=== PATIENT | male | born 1960 | race Caucasian/White ===

== ENCOUNTER 2024-05-16 11:34 | Observation (INO) ==
--- NOTE | 2024-05-16 11:52 | Emergency Department Note ---
HPI - Chest Pain General Chief Complaint: Chest Pain Stated Complaint: Weakness Time Seen by Provider: 05/16/24 11:35 Source: patient and family Mode of arrival: wheelchair Limitations: physical limitation History of Present Illness Pertinent past history: Reports coronary artery disease, prior NE and other (brain bleed) Onset (ago): day(s) (1) Timing of current episode: Reports episodic, increasing and still present Prior episodes: Yes Onset: Reports during rest and awoke with symptoms Pain location: Reports substernal Pain radiation: Reports none Severity: moderate Quality: Reports aching and heaviness Relieving factors: Reports nothing Exacerbating factors: Reports exertion Context: Reports recent illness (brain bleed) Associated symptoms: Reports nausea and other (headache) Treatment prior to arrival: Reports none Risk Factors Coronary artery disease risk factors: Reports smoking history, hyperlipidemia and hypertension Thoracic aortic dissection risk factors: Reports none Related Data Home Medications Medication Instructions Recorded Confirmed hydralazine 50 mg tablet 50 mg PO BEDTIME 05/16/24 05/16/24 hydrocodone 7.5 mg-acetaminophen 1 tab PO Q6H PRN pain 05/16/24 05/16/24 325 mg tablet levetiracetam 500 mg tablet 500 mg PO Q12H 05/16/24 05/16/24 lisinopril 40 mg tablet 40 mg PO DAILY 05/16/24 05/16/24 nifedipine 60 mg tablet,extended 60 mg PO DAILY 05/16/24 05/16/24 release 24 hr Allergies Allergy/AdvReac Type Severity Reaction Status Date / Time No Known Drug Allergies Allergy Verified 05/16/24 12:02 Review of Systems Status of ROS 10 or more systems reviewed and unremark able except as noted in history and below Constitutional Reports: fatigue; Denies: fever, chills, change in weight, malaise, night sweats or change in sleep pattern Eyes Denies: change in vision, blurry vision, blind spots, light sensitivity, eye discomfort, eye discharge, dry eyes, increased production of tears, floaters, seeing flashes or decreased night vision Ears, nose, mouth, and throat Denies: throat pain, neck pain, throat swelling, difficulty swallowing, hoarseness, mouth pain, swelling of lips/tongue, dry mouth, bad breath, ear pain, ear discharge, change in hearing, tinnitus, vertigo, nasal discharge, nasal congestion, nose bleeds or post nasal drip Cardiovascular Reports: chest pain; Denies: palpitations, edema, swelling of feet/ankles, lightheadedness, shortness of breath with exertion, shortness of breath when lying down, leg pain with exertion or bluish discoloration of hands/feet Respiratory Denies: shortness of breath, cough, wheezing, stridor, pain on inspiration, change in phlegm color, coughing up blood or chest congestion Gastrointestinal Reports: nausea; Denies: abdominal pain, vomiting, coffee grounds in vomit, heartburn, diarrhea, constipation, bloating, belching, excessive passing of gas, difficulty swallowing, feeling full early, change in bowel habits, painful bowel movements, rectal pain, rectal swelling, rectal itching, change in stool character, blood in stool, mucus in stool, white/light colored stool or fatty stool Genitourinary Denies: painful urination, urinary frequency, urinary urgency, blood in urine, genital pain, genital lesion, penile discharge, testicular pain, testicular mass, scrotal swelling, difficulty urinating, nighttime urination, change in urine stream, decreased urine ouput, difficulty starting urination, urinary hesitancy, urinary dribbling, difficulty with ejactulations, painful ejaculations, blood in semen, change in libido or difficulty impregnating Musculoskeletal Denies: back pain, neck pain, extremity pain, extremity swelling, joint pain, limited range of motion, joint swelling, muscle cramps, muscle weakness or loss of height Integumentary/Breast Denies: rash, itching, redness, skin pain, skin tende rness, skin swelling, sores, new lesion, changing lesion, non-healing lesion, changes in skin color, jaundice, stretch lin, acne, nail changes, change in hair, breast pain, breast swelling, nipple discharge, breast mass, breast skin changes or change in breast shape Neurological Reports: headache, weakness in extremities and difficulty communicating thoughts; Denies: numbness in extremities, lack of coordination, dizziness, vertigo, confusion, behavioral changes, slurred speech, seizure-like activity or involuntary movements Psychiatric Reports: anxiety; Denies: mood swings, panic attacks, change in sleep pattern, hopelessness, loss of interest, irritability, paranoia, memory loss, difficulty concentrating, visual hallucinations, auditory hallucinations, tactile hallucinations, suicidal ideation or homicidal ideation Endocrine Reports: fatigue; Denies: excessive urination, excessive thirst, cold intolerance, excessive sweating, flushing, heat intolerance, deepening of the voice, change in body appearance or change in libido Hematologic/Lymphatic Denies: easy bruising, easy bleeding or enlarged lymph nodes Allergic/Immunologic Reports: wheezing; Denies: hives, throat swelling, tongue swelling, facial swelling, itchy eyes, seasonal allergies or food intolerance Exam Constitutional: normal general appearance, distress noted (moderate), average body habitus, limitations noted (patient has limited communication post recent brain bleed) (physical limitations) and alert Vital Signs - 24 hr 05/16/24 11:34 05/16/24 11:34 05/16/24 12:00 Temperature 98 F Pulse Rate 107 H 99 H Respiratory Rate 20 20 Blood Pressure 124/86 134/83 Pulse Oximetry 99 99 99 Oxygen Delivery [facility] Room Air Room Air Room Air 05/16/24 12:30 05/16/24 13:00 05/16/24 13:30 Temperature Pulse Rate 97 H 95 H 86 Respiratory Rate 20 20 20 Blood Pressure 141/70 121/81 107/68 Pulse Oximetry 99 99 99 Oxygen Delivery [facility] Room Air Room Air Room Air 05/16/24 14:00 05/16/24 14:30 05/16/24 15:00 Temperature Pulse Rate 83 88 83 Respiratory Rate 20 20 20 Blood Pressure 133/76 104/50 112/61 Pulse Oximetry 99 99 99 Oxygen Delivery [facility] Room Air Room Air Room Air 05/16/24 15:30 05/16/24 16:00 05/16/24 16:30 Temperature Pulse Rate 81 85 89 Respiratory Rate 20 20 20 Blood Pressure 105/58 110/67 121/74 Pulse Oximetry 99 99 99 Oxygen Delivery [facility] Room Air Room Air Room Air 05/16/24 17:00 Temperature Pulse Rate 89 Respiratory Rate 20 Blood Pressure 115/76 Pulse Oximetry 99 Oxygen Delivery [facility] Room Air HENMT: normocephalic, head/scalp atraumatic, hearing grossly abnormal (hard of hearing), external ears normal, EACs normal, nasal mucous membranes normal, external nose normal, oral mucous membranes normal and oropharynx normal Eyes: PERRL, EOMs intact bilaterally, conjunctivae normal, no scleral icterus, no papilledema, normal visual bryant by confrontation, alignment normal, periorbital findings normal and no nystagmus Neck/C-Spine: visual inspection normal, trachea midline, cervical spine nontender, cervical full ROM noted, supple, no meningeal signs and thyroid normal Lymph: no lymphadenopathy noted and no lymphedema noted Chest: inspection of chest normal, palpation of chest normal, inspection of breast(s) abnormal and palpation of breast(s) abnormal Respiratory: breath sounds equal bilaterally, normal respiratory effort, clear to auscultation bilaterally, no wheezes, no rales, no retractions and no use of accessory muscles Cardiovascular: normal heart rate noted, regular rhythm noted, no gallop, no rub, no murmur, no JVD, no clicks, peripheral pulses 2+ throughout and no additional abnormal heart sounds Gastrointestinal: abdomen normal to inspection, abdomen soft to palpation, nontender to palpation, nontender to percussion, nondistended, normoactive bowel sounds, hepatosplenomegaly noted (hepatomegaly), no masses, no pulsatile mass, no ascites and normal rectal exam (deferred) Genitourinary: no CVA tenderness, bladder normal to palpation, penis abnormal (deferred), uncircumcised, testes abnormal, meatus abnormal (deferred), scrotum abnormal (deferred) and inguinal lymphadenopathy noted Back/Pelvis: spine normal to inspection, no thoracic spine tenderness, no lumbar spine tenderness, thoracic spine ROM normal, lumbar spine ROM normal and no paraspinal muscle tenderness noted Extremities: normal to inspection, normal to palpation, no tenderness, full ROM, no joint enlargement and no deformity Neurology: blower mechanic II-XII intact, no movement abnormality noted, no focal motor deficit noted, no sensory deficits noted, gait normal, coordination normal, no pronator drift noted, no fasciculations noted and GCS normal Patient cannot verbally communicate but has to think about what he wants to say, patient reports headache, patient has no other neurological deficits noted other than generalized weakness. Psychiatry: Mental Status Exam documented within this Exam's Psych section mental status grossly normal, oriented x3 (Patient is oriented to his normal state post brain bleed), thought process normal, cooperative, affect normal and psychomotor activity normal Feel stressed/tense/nervous/anxious/difficulty sleeping: not at all Life stressor details: n/a Skin: skin color normal, no rash, no lesions, no ecchymosis noted, no wounds, no lacerations, skin turgor normal, no jaundice, no petechiae, no mottling, nails normal and no alopecia Course Course Hospital Course: 63-year-old male who presented to ER with complaint of chest pain x 1 day with mild nausea and reported headache has been evaluated by physical exam, CBC, CMP, urinalysis, EKG, troponin, plain film chest x-ray, CT of the brain, repeat troponin with results as noted in charting. Patient has been found to have a acute on chronic brain bleed with mild midline shift, patient's initial troponin was within normal range but was noted to be mildly elevated and was repeated at the 4-hour jone with a noted substantial gain to 21,000+. Discussed patient's condition with family and a DNR was signed at that time after patient's son gave verbal medical power of attorney law clerk to his cousin that is a nurse practitioner Parrish Gutierrez. DNR was signed by Parrish Gutierrez as witnessed by nurse practitioner Bon. [facility] and comfort measures with disposition to hospice tomorrow as a tentative plan. Patient had been released to [facility] following a brain bleed according to family approximately 1 week ago. Vital Signs Vital signs: Vital Signs Temperature 98 F 05/16/24 11:34 Pulse Rate 107 H 05/16/24 11:34 Respiratory Rate 20 05/16/24 11:34 Blood Pressure 124/86 05/16/24 11:34 Pulse Oximetry 99 05/16/24 11:34 Oxygen Delivery Method Room Air 05/16/24 11:34 Temperature 98 F 05/16/24 11:34 Pulse Rate 89 05/16/24 17:00 Respiratory Rate 20 05/16/24 17:00 Blood Pressure 115/76 05/16/24 17:00 Pulse Oximetry 99 05/16/24 17:00 Oxygen Delivery Method Room Air 05/16/24 17:00 MDM - Chest Pain MDM Narrative Medical decision making narrative: Medical Decision Making this patient involved physical exam, CBC, CMP, urinalysis, serial troponins, EKG, plain film chest x-ray, and CT of the brain. Differential Diagnosis Differential diagnosis: Likely unstable angina pectoris, st elevation myocardial infarction, chest pain and other (Brain bleed, occlusive stroke, NSTEMI) Medical Records Data Attestation: I reviewed the patient's medical records. Lab Data Attestation: I reviewed the patient's lab results. Labs: Lab Results 05/16/24 05/16/24 Range/Units 11:45 16:00 WBC 12.2 H (3.7-9.6) K/uL RBC 3.8 L (4.40-5.80) M/uL Hgb 12.6 L (14.0-17.4) gm/dL Hct 37.9 L (41.3-50.1) % MCV 99.8 H (81.9-96.5) fl MCH 33.3 (27.6-33.7) pg MCHC 33.3 (33.0-35.7) g/dl RDW 14.9 H (11.0-14.8) % Plt Count 467 H (142-355) K/uL MPV 8.6 (6.0-10.4) fl Gran % 85.0 H (49.1-73.1) % Lymph % (Auto) 8.9 L (17.6-39.05) % [place] % (Auto) 5.2 (4.5-10.7) % Eos % (Auto) 0.2 (0.0-4.0) % Baso % (Auto) 0.7 (0.0-1.3) Lymph # (Auto) 1.1 (0.8-2.9) [place] # (Auto) 0.6 (0.2-0.8) Eos # (Auto) 0.0 (0.0-0.3) Baso # (Auto) 0.1 (0.0-0.1) Absolute Gran (auto) 10.3 H (2.0-6.2) Sodium 137 (136-145) mmol/L Potassium 4.7 (3.6-5.2) mmol/L Chloride 102.0 (98-107) mmol/L Carbon Dioxide 22 (21-32) mmol/L Anion Gap 13.0 (4-14) mEq/L BUN 39 H (7-18) mg/dL Creatinine 1.2 (0.6-1.3) mg/dL Estimated GFR 68.0 (>59.9) Glucose 214 H (70-110) mg/dL Calcium 10.0 (8.5-10.1) mg/dL Magnesium 1.7 L (1.8-2.4) mg/dL Total Bilirubin 0.35 (0.0-1.0) mg/dL AST 30 (15-37) U/L ALT 23 L (30-65) U/L Alkaline Phosphatase 134 (50-136) U/L Troponin I High Sens 45.40 67790.90 H* (4.0-60.4) ng/L Total Protein 8.2 (6.4-8.2) g/dL Albumin 3.4 (3.4-5.0) g/dL Imaging Data Imaging ordered: Chest x-ray and CT scan - head Attestation: I have reviewed the pertinent imaging results. Radiologist's impression: EXAM: CT HEAD/BRAIN WO CON HISTORY: headache with hx of brain bleedheadache with hx of brain bleed; COMPARISON: Numerous priors TECHNIQUE: Multiple axial images of the head were obtained from the skull base to the vertex without administration of IV contrast. Sagittal and coronal reformatted images were performed. Automated exposure control (AEC) was utilized to adjust the MA and/or kV. FINDINGS: CT findings of an acute on chronic [place] hemispheric right frontotemporal extra- axial subdural hemorrhage which measures 10 mm in greatest diameter with slight [id number] midline shift of roughly 6 mm without evidence for hailey herniation syndrome yet seen. Close interval head CT follow-up in 1 hour is recommended to exclude interval enlargement. Neurosurgical consultation will also be required. There is no evidence for acute hydrocephalus yet seen, either. There is no secondary evidence for cerebral edema to suggest impending cerebral ischemia on this examination, either. Otherwise, there is moderate sulcal and cisternal prominence as well as atherosclerotic change in the proximal intracranial carotid and vertebral arteries, which is not out of proportion to the patient's stated age. There is diffuse CT density alteration seen in the periventricular white matter of the high and mid-convexity, which is likely in the setting of small vessel disease and not out of proportion to the patient's stated age. There is no pathologic ventricular dilatation or CT imaging evidence for hydrocephalus or herniation syndrome. No midline shift is evident. No other acute intraparenchymal hemorrhage or mass can be identified. If there remains a strong concern for any intra-cranial neoplasm, then follow-up with CT or MR imaging of the brain would be more sensitive to exclude any intra-cranial mass lesion. No extra-axial fluid collections are seen. No alteration in the attenuation of the brain parenchyma can be identified to suggest acute or subacute ischemic change. Also, if clinical symptoms are concerning for an acute CVA, then follow-up MRI with DWI sequencing is recommended. The extracranial structures are unremarkable. The paranasal sinuses and mastoid air cells are relatively clear. IMPRESSION: CT findings of an acute on chronic [place] hemispheric right-sided frontotemporal, extra-axial and subdural, hemorrhage which measures 10 mm in greatest diameter with slight [id number] midline shift of roughly 6 mm without evidence for hailey transtentorial herniation syndrome yet seen. No uncal herniation is yet observed, either. Close interval head CT follow-up in 1 hour is recommended to exclude interval enlargement. Neurosurgical consultation will also be required. There is no evidence for acute hydrocephalus yet seen, either. There is no secondary evidence for cerebral edema to suggest impending cerebral ischemia on this examination, either. No other acute intracranial process is identified on this noncontrast head CT examination. THIS IS AN ELECTRONICALLY VERIFIED FINAL REPORT 05/16/2024 3:08 PM - Electronically signed by Bo Weber MD EXAM: XR CHEST 1V HISTORY: dyspnea; chest pain this morning; cbn COMPARISON: March 23, 2024 FINDINGS: The trachea is midline. The cardiac silhouette is unremarkable. The lungs are clear without focal infiltrate or effusion. The bony thorax is unremarkable. IMPRESSION: No acute cardiopulmonary disease. THIS IS AN ELECTRONICALLY VERIFIED FINAL REPORT 05/16/2024 12:37 PM - Electronically signed by Bob Alberts MD ECG Data Attestation: I have reviewed the pertinent ECG results. Interpretation: Sinus tachycardia rate 104 Anterior infarct, acute RR 576 IL 117 P axis 19 QRS 57 T52 Discharge Plan Discharge Patient Disposition: Admitted As Observation Condition: Other Chief Complaint: Chest Pain Clinical Impression: Acute non-ST elevation myocardial infarction (NSTEMI), Brain bleed, Type 2 diabetes mellitus with hyperglycemia, Chest pain, Dehydration Prescriptions: No Action levetiracetam 500 mg tablet 500 mg PO Q12H Patient Comments: TAKE 1 TABLET (500 MG TOTAL) BY MOUTH IN THE MORNING AND BEFORE BEDTIME nifedipine 60 mg tablet extended release 24hr 60 mg PO DAILY Patient Comments: TAKE 1 TABLET BY MOUTH EVERY DAY hydralazine 50 mg tablet 50 mg PO BEDTIME Patient Comments: TAKE 1 TABLET BY MOUTH EVERYDAY AT BEDTIME lisinopril 40 mg tablet 40 mg PO DAILY Patient Comments: TAKE 1 TABLET BY MOUTH EVERY DAY hydrocodone-acetaminophen 7.5-325 mg tablet 1 tab PO Q6H PRN (Reason: pain) Patient Comments: TAKE 1 TABLET BY MOUTH EVERY 6 HOURS NEEDED FOR PAIN FOR UP TO 7 DAYS. Print Language: Japanese Referrals: Fadi Alvarez MD [Primary Care Provider] - Time of Disposition: 19:30 [facility] Medical History Pancreatitis Bilateral hearing loss Essential (primary) hypertension Type 2 diabetes mellitus with hyperglycemia Biliary colic Cholelithiases History of TIAs Hearing deficit ETOH abuse Diabetes HTN (hypertension) Social History Smoking status: current every day smoker Within the past year, how often did you have a drink containing alcohol: 4 or more times a week Within the past year, how many standard drinks containing alcohol did you have on a typical day: 7 to 9 Within the past year, how often did you have six or more drinks on one occasion: daily or almost daily Total score: 10 Score interpretation: A score of 4 or more indicates drinking is likely to affect patient's safety. Non-prescribed substance use: denies use Problems where you live: no known problems Highest level of school completed/degree received: high school Little interest or pleasure in doing things: not at all Feeling down, depressed, or hopeless: not at all Feel stressed/tense/nervous/anxious/difficulty sleeping: not at all Life stressor details: n/a Due to disability, difficulty making decisions: No Gender Identity: male
[2024-05-16 12:05] LABS: Basophils #(Absolute) Auto 0.1 (0.0-0.1); Basophils%(Percent) Auto 0.7 (0.0-1.3); Granulocytes#(Absolute)- Auto 10.3 (2.0-6.2); Monocytes #(Absolute)- Auto 0.6 (0.2-0.8); Monocytes %(Percent)- Auto 5.2 % (4.5-10.7)
[2024-05-16 12:06] LABS: Eosinophils%(Percent) Auto 0.2 % (0.0-4.0); Hematocrit 37.9 % (41.3-50.1); Mean Corpuscular Volume 99.8 fl (81.9-96.5); Platelet Count 467 K/uL (142-355); White Blood Count 12.2 K/uL (3.7-9.6)
[2024-05-16] MEDS: ONDANSETRON HCL/PF 4 MG/2 ML VIAL IVP ONE ×2 (12:07→18:27)
[2024-05-16] MEDS: MORPHINE SULFATE 4 MG/ML CARTRIDGE IVP ONE (12:07)
[2024-05-16 12:11] LABS: Potassium 4.7 mmol/L (3.6-5.2)
[2024-05-16] MEDS ORDERED: 0.9 % SODIUM CHLORIDE 1000 ML 1,000 ML IV ONE (13:12)
[2024-05-16] MEDS: 0.9 % SODIUM CHLORIDE 1000 ML 1,000 ML IV ONE (13:15)
[2024-05-16] MEDS: MEPERIDINE HCL/PF 25 MG/ML SYRINGE IVP ONE (18:27)
[2024-05-16] MEDS ORDERED: PROMETHAZINE HCL 25 MG in 0.9 % SODIUM CHLORIDE 50 ML IV PRN (19:43)
[2024-05-16] MEDS ORDERED: ONDANSETRON HCL/PF 4 MG/2 ML VIAL INJ PRN (19:43)
[2024-05-16] MEDS: MORPHINE SULFATE 4 MG/ML CARTRIDGE IV PRN (21:13)
[2024-05-17] MEDS: lisinopriL 20 MG TABLET PO SCH (10:14)
[2024-05-17] MEDS: levETIRAcetam 500 MG TABLET PO SCH (10:14)
[2024-05-17] MEDS: NIFEdipine 30 MG TAB.ER.24 PO SCH (10:14)
[2024-05-17] MEDS ORDERED: PROMETHAZINE HCL 25 MG in 0.9 % SODIUM CHLORIDE 50 ML IV PRN (11:00)
[2024-05-17] MEDS: PANTOPRAZOLE SODIUM 40 MG VIAL IVP SCH (12:43)
[2024-05-17] MEDS: ACETAMINOPHEN 1000 MG/100 ML 1,000 MG/100 ML IV.SOLN IV SCH (12:44)
--- NOTE | 2024-05-17 14:31 | History & Physical Report ---
H&P: HPI History of Present Illness Chief complaint: NSTEMI,BRAIN BLEED,DEHYDRATION,CARE AND COMFORT,EN Narrative: 63-year-old male who presented to ER with complaint of chest pain x 1 day with mild nausea and reported headache has been evaluated by physical exam, CBC, CMP, urinalysis, EKG, troponin, plain film chest x-ray, CT of the brain, repeat troponin with results as noted in charting. Patient has been found to have a acute on chronic brain bleed with mild midline shift, patient's initial troponin was within normal range but was noted to be mildly elevated and was repeated at the 4-hour jone with a noted substantial gain to 21,000+. Discussed patient's condition with family and a DNR was signed at that time after patient's son gave verbal medical power of licensed esthetician to his cousin that is a nurse practitioner Parrish Gutierrez. DNR was signed by Parrish Gutierrez as witnessed by nurse practitioner Bon. Patient will be admitted to the [facility] floor for care and comfort measures with disposition to hospice tomorrow as a tentative plan. Patient had been released to [facility] following a brain bleed according to family approximately 1 week ago. Review of Systems Status of ROS 10 or more systems reviewed and unremark able except as noted in history and below Constitutional Reports: fatigue; Denies: fever, chills, change in weight, malaise, night sweats or change in sleep pattern Eyes Denies: change in vision, blurry vision, blind spots, light sensitivity, eye discomfort, eye discharge, dry eyes, increased production of tears, floaters, seeing flashes or decreased night vision Ears, nose, mouth, and throat Denies: throat pain, neck pain, throat swelling, difficulty swallowing, hoarseness, mouth pain, swelling of lips/tongue, dry mouth, bad breath, ear pain, ear discharge, change in hearing, tinnitus, vertigo, nasal discharge, nasal congestion, nose bleeds or post nasal drip Cardiovascular Reports: chest pain; Denies: palpitations, edema, swelling of feet/ankles, lightheadedness, shortness of breath with exertion, shortness of breath when lying down, leg pain with exertion or bluish discoloration of hands/feet Respiratory Reports: wheezing; Denies: shortness of breath, cough, stridor, pain on inspiration, change in phlegm color, coughing up blood or chest congestion Gastrointestinal Reports: nausea; Denies: abdominal pain, vomiting, coffee grounds in vomit, heartburn, diarrhea, constipation, bloating, belching, excessi ve passing of gas, difficulty swallowing, feeling full early, change in bowel habits, painful bowel movements, rectal pain, rectal swelling, rectal itching, change in stool character, blood in stool, mucus in stool, white/light colored stool or fatty stool Genitourinary Denies: painful urination, urinary frequency, urinary urgency, blood in urine, genital pain, genital lesion, penile discharge, testicular pain, testicular mass, scrotal swelling, difficulty urinating, nighttime urination, change in urine stream, decreased urine ouput, difficulty starting urination, urinary hesitancy, urinary dribbling, difficulty with ejactulations, painful ejaculations, blood in semen, change in libido or difficulty impregnating Musculoskeletal Denies: back pain, neck pain, extremity pain, extremity swelling, joint pain, limited range of motion, joint swelling, muscle cramps, muscle weakness or loss of height Integumentary/Breast Denies: rash, itching, redness, skin pain, skin tenderness, skin swelling, sores, new lesion, changing lesion, non-healing lesion, changes in skin color, jaundice, stretch lin, acne, nail changes, change in hair, breast pain, breast swelling, nipple discharge, breast mass, breast skin changes or change in breast shape Neurological Reports: headache, weakness in extremities and difficulty communicating thoughts; Denies: numbness in extremities, lack of coordination, dizziness, vertigo, confusion, behavioral changes, slurred speech, seizure-like activity or involuntary movements Psychiatric Reports: anxiety; Denies: mood swings, panic attacks, change in sleep pattern, hopelessness, loss of interest, irritability, paranoia, memory loss, difficulty concentrating, visual hallucinations, auditory hallucinations, tactile hallucinations, suicidal ideation or homicidal ideation Endocrine Reports: fatigue; Denies: excessive urination, excessive thirst, cold intolerance, excessive sweating, flushing, heat intolerance, deepening of the voice, change in body appearance or change in libido Hematologic/Lymphatic Denies: easy bruising, easy bleeding or enlarged lymph nodes Allergic/Immunologic Reports: wheezing; Denies: hives, throat swelling, tongue swelling, facial swelling, itchy eyes, seasonal allergies or food intolerance PFSH PFSH Medical History (Updated 05/18/24 @ 11:21 by Mabel Cleaning DO) History of TIAs Pancreatitis Bilateral hearing loss Essential (primary) hypertension Type 2 diabetes mellitus with hyperglycemia Biliary colic Cholelithiases Hearing deficit ETOH abuse Diabetes HTN (hypertension) Social History Smoking status: current every day smoker Within the past year, how often did you have a drink containing alcohol: 4 or more times a week Within the past year, how many standard drinks containing alcohol did you have on a typical day: 7 to 9 Within the past year, how often did you have six or more drinks on one occasion: daily or almost daily Total score: 10 Score interpretation: A score of 4 or more indicates drinking is likely to affect patient's safety. Non-prescribed substance use: denies use Problems where you live: no known problems Highest level of school completed/degree received: decline to answer Little interest or pleasure in doing things: not at all Feeling down, depressed, or hopeless: not at all Feel stressed/tense/nervous/anxious/difficulty sleeping: not at all Life stressor details: n/a Due to disability, difficulty making decisions: No Gender Identity: male Meds Home Medications and Allergies Home Medications Medication Instructions Recorded Confirmed Type hydralazine 50 mg tablet 50 mg PO BEDTIME 05/16/24 05/16/24 History hydrocodone 7.5 mg-acetaminophen 1 tab PO Q6H PRN pain 05/16/24 05/16/24 History 325 mg tablet levetiracetam 500 mg tablet 500 mg PO Q12H 05/16/24 05/16/24 History lisinopril 40 mg tablet 40 mg PO DAILY 05/16/24 05/16/24 History nifedipine 60 mg tablet,extended 60 mg PO DAILY 05/16/24 05/16/24 History release 24 hr Allergies Allergy/AdvReac Type Severity Reaction Status Date / Time No Known Drug Allergies Allergy Verified 05/16/24 12:02 Exam Exam: Patient was in low trevino's position resting upon entering room for exam. Patient is receiving end of life care and comfort measures. Constitutional: normal general appearance, distress noted (moderate), average body habitus, limitations noted (patient has limited communication post recent brain bleed) (physical limitations) and alert Vital Signs - 24 hr 05/16/24 14:30 05/16/24 15:00 05/16/24 15:30 Temperature Pulse Rate 88 83 81 Pulse Rate [Bilate ral] Respiratory Rate 20 20 20 Blood Pressure 104/50 112/61 105/58 Blood Pressure [Le ft Arm] Pulse Oximetry 99 99 [facility] 05/16/24 16:00 05/16/24 16:30 05/16/24 17:00 Temperature Pulse Rate 85 89 89 Pulse Rate [Bilate ral] Respiratory Rate 20 20 20 Blood Pressure 110/67 121/74 115/76 Blood Pressure [Le ft Arm] Pulse Oximetry 99 99 99 Oxygen Delivery [facility] Room Air Room Air Room Air 05/16/24 18:00 05/16/24 19:00 05/16/24 20:00 Temperature Pulse Rate 86 88 Pulse Rate [Bilate ral] Respiratory Rate 20 20 20 Blood Pressure 111/71 118/77 107/57 Blood Pressure [Le ft Arm] Pulse Oximetry 99 99 99 Oxygen Delivery [facility] Room Air Room Air Room Air 05/16/24 21:00 05/16/24 21:06 05/16/24 23:49 Temperature 98.3 F Pulse Rate 88 Pulse Rate [Bilate ral] 87 Respiratory Rate 20 20 18 Blood Pressure 124/70 124/70 Blood Pressure [Le ft Arm] 119/70 Pulse Oximetry 99 99 97 Oxygen Delivery [facility] Room Air Room Air 05/17/24 03:30 05/17/24 07:52 05/17/24 12:00 Temperature 98.1 F 98.1 F 97.7 F Pulse Rate Pulse Rate [Bilate ral] 88 86 76 Respiratory Rate 19 19 18 Blood Pressure Blood Pressure [Le ft Arm] 115/71 129/75 112/67 Pulse Oximetry 97 99 98 [facility] Air Room Air HENMT: normocephalic, head/scalp atraumatic, hearing grossly abnormal (hard of hearing), external ears normal, EACs normal, nasal mucous membranes normal, external nose normal, oral mucous membranes normal and oropharynx normal Eyes: PERRL, EOMs intact bilaterally, conjunctivae normal, no scleral icterus, no papilledema, normal visual bryant by confrontation, alignment normal, periorbital findings normal and no nystagmus Neck/C-Spine: visual inspection normal, trachea midline, cervical spine nontender, cervical full ROM noted, supple, no meningeal signs and thyroid normal Lymph: no lymphadenopathy noted and no lymphedema noted Chest: inspection of chest normal and palpation of chest normal Respiratory: breath sounds equal bilaterally, normal respiratory effort, clear to auscultation bilaterally, no wheezes, no rales, no retractions and no use of accessory muscles Cardiovascular: normal heart rate noted, regular rhythm noted, no gallop, no rub, no murmur, no JVD, no clicks, peripheral pulses 2+ throughout and no additional abnormal heart sounds Gastrointestinal: abdomen normal to inspection, abdomen soft to palpation, nontender to palpation, nontender to percussion, nondistended and normoactive bowel sounds Genitourinary: no CVA tenderness and bladder normal to palpation Back/Pelvis: spine normal to inspection, no thoracic spine tenderness, no lumbar spine tenderness, thoracic spine ROM normal, lumbar spine ROM normal and no paraspinal muscle tenderness noted Extremities: normal to inspection, normal to palpation, no tenderness, full ROM, no joint enlargement and no deformity Neurology: clay puddler II-XII intact, no movement abnormality noted, no focal motor deficit noted, no sensory deficits noted, gait normal, coordination normal, no pronator drift noted, no fasciculations noted and GCS normal Patient cannot verbally communicate but has to think about what he wants to say, patient reports headache, patient has no other neurological deficits noted other than generalized weakness. Psychiatry: Mental Status Exam documented within this Exam's Psych section mental status grossly normal, oriented x3 (Patient is oriented to his normal state post brain bleed), thought process normal, cooperative, affect normal and psychomotor activity normal Skin: skin color normal, no rash, no lesions, no ecchymosis noted, no wounds, no lacerations, skin turgor normal, no jaundice, no petechiae, no mottling, nails normal and no alopecia Assessment and Plan Assessment and Plan (1) Intracranial hemorrhage: Code(s): I62.9 - Nontraumatic intracranial hemorrhage, unspecified (2) Non-STEMI (non-ST elevated myocardial infarction): Code(s): I21.4 - Non-ST elevation (NSTEMI) myocardial infarction (3) Pancreatitis: Qualifiers: Acute pancreatitis complication: unspecified Chronicity: acute Pancreatitis type: unspecified pancreatitis type Qualified Code(s): K85.90 - Acute pancreatitis without necrosis or infection, unspecified Code(s): K85.90 - Acute pancreatitis without necrosis or infection, unspecified (4) Cholelithiases: Qualifiers: Biliary obstruction: without biliary obstruction Cholecystitis presence: without cholecystitis Cholelithiasis location: bile duct Qualified Code(s): K80.50 - Calculus of bile duct without cholangitis or cholecystitis without obstruction Code(s): K80.20 - Calculus of gallbladder without cholecystitis without obstruction (5) Biliary colic: Code(s): K80.50 - Calculus of bile duct without cholangitis or cholecystitis without obstruction (6) Type 2 diabetes mellitus with hyperglycemia: Qualifiers: Diabetes mellitus long term care phlebotomist insulin use: without alf use Qualified Code(s): E11.65 - Type 2 diabetes mellitus with hyperglycemia Code(s): E11.65 - Type 2 diabetes mellitus with hyperglycemia (7) Essential (primary) hypertension: Code(s): I10 - Essential (primary) hypertension (8) Bilateral hearing loss: Qualifiers: Hearing loss type: sensorineural Qualified Code(s): H90.3 - Sensorineural hearing loss, bilateral Code(s): H91.93 - Unspecified hearing loss, bilateral (9) GERD (gastroesophageal reflux disease): Qualifiers: Esophagitis presence: without esophagitis Qualified Code(s): K21.9 - Gastro-esophageal reflux disease without esophagitis Code(s): K21.9 - Gastro-esophageal reflux disease without esophagitis (10) ETOH abuse: Code(s): F10.10 - Alcohol abuse, uncomplicated (11) History of TIAs: Code(s): Z86.73 - Personal history of transient ischemic attack (TIA), and cerebral infarction without residual deficits (12) Admission for end of life care: Code(s): Z51.5 - Encounter for palliative care (13) Need for comfort care: Plan Levetiracetam 500 mg PO Q12H Lisinopril 40 mg PO DAILY Nifedipine 60 mg PO DAILY Acetaminophen 1,000 mg in 100 mls @ 400 mls/hr IV Q6H Pantoprazole Sodium 40 mg IVP DAILY Morphine Sulfate 4 mg IVQ4H PRN Ondansetron Hcl 4 mg INJ Q4H PRN Promethazine Hcl 25 mg in Sodium Chloride 51 mls @ 200 mls/hr IV ONCE PRN Hydromorphone Hcl 1 mg IV Q2H PRN Promethazine Hcl 25 mg in Sodium Chloride 51 mls @ 200 mls/hr IV Q6H PRN discussed hospice with family and looking for inpatient care for the patient [facility] or hospice house as patient self pay looking for placement and payer source for the patient to get the appropriate services he needs Results Labs Labs: CBC WBC 12.2 K/uL (3.7-9.6) H 05/16/24 11:45 RBC 3.8 M/uL (4.40-5.80) L 05/16/24 11:45 Hgb 12.6 gm/dL (14.0-17.4) L 05/16/24 11:45 Hct 37.9 % (41.3-50.1) L 05/16/24 11:45 MCV 99.8 fl (81.9-96.5) H 05/16/24 11:45 MCH 33.3 pg (27.6-33.7) 05/16/24 11:45 MCHC 33.3 g/dl (33.0-35.7) 05/16/24 11:45 RDW 14.9 % (11.0-14.8) H 05/16/24 11:45 Plt Count 467 K/uL (142-355) H 05/16/24 11:45 MPV 8.6 fl (6.0-10.4) 05/16/24 11:45 Gran % 85.0 % (49.1-73.1) H 05/16/24 11:45 Lymph % (Auto) 8.9 % (17.6-39.05) L 05/16/24 11:45 Placer % (Auto) 5.2 % (4.5-10.7) 05/16/24 11:45 Eos % (Auto) 0.2 % (0.0-4.0) 05/16/24 11:45 Baso % (Auto) 0.7 (0.0-1.3) 05/16/24 11:45 Lymph # (Auto) 1.1 (0.8-2.9) 05/16/24 11:45 Placer # (Auto) 0.6 (0.2-0.8) 05/16/24 11:45 Eos # (Auto) 0.0 (0.0-0.3) 05/16/24 11:45 Baso # (Auto) 0.1 (0.0-0.1) 05/16/24 11:45 Absolute Gran (auto) 10.3 (2.0-6.2) H 05/16/24 11:45 BMP Sodium 137 mmol/L (136-145) 05/16/24 11:45 Potassium 4.7 mmol/L (3.6-5.2) 05/16/24 11:45 Chloride 102.0 mmol/L (98-107) 05/16/24 11:45 Carbon Dioxide 22 mmol/L (21-32) 05/16/24 11:45 Anion Gap 13.0 mEq/L (4-14) 05/16/24 11:45 BUN 39 mg/dL (7-18) H 05/16/24 11:45 Creatinine 1.2 mg/dL (0.6-1.3) 05/16/24 11:45 Estimated GFR 68.0 (>59.9) 05/16/24 11:45 Glucose 214 mg/dL (70-110) H 05/16/24 11:45 Calcium 10.0 mg/dL (8.5-10.1) 05/16/24 11:45 Magnesium 1.7 mg/dL (1.8-2.4) L 05/16/24 11:45 Total Bilirubin 0.35 mg/dL (0.0-1.0) 05/16/24 11:45 AST 30 U/L (15-37) 05/16/24 11:45 ALT 23 U/L (30-65) L 05/16/24 11:45 Alkaline Phosphatase 134 U/L (50-136) 05/16/24 11:45 Total Protein 8.2 g/dL (6.4-8.2) 05/16/24 11:45 Albumin 3.4 g/dL (3.4-5.0) 05/16/24 11:45 Cardiac Enzymes Troponin I High Sens 25629.80 ng/L (4.0-60.4) H* 05/17/24 05:20 Liver Function Total Bilirubin 0.35 mg/dL (0.0-1.0) 05/16/24 11:45 AST 30 U/L (15-37) 05/16/24 11:45 ALT 23 U/L (30-65) L 05/16/24 11:45 Alkaline Phosphatase 134 U/L (50-136) 05/16/24 11:45 Total Protein 8.2 g/dL (6.4-8.2) 05/16/24 11:45 Albumin 3.4 g/dL (3.4-5.0) 05/16/24 11:45 Imaging Imaging ordered: Chest x-ray and CT scan - head Radiologist's impression: XR CHEST 1V Date of Service: 05/16/24 HISTORY: dyspnea; chest pain this morning; cbn COMPARISON: March 23, 2024 FINDINGS: The trachea is midline. The cardiac silhouette is unremarkable. The lungs are clear without focal infiltrate or effusion. The bony thorax is unremarkable. IMPRESSION: No acute cardiopulmonary disease. CT HEAD/BRAIN WO CON Date of Service: 05/16/24 HISTORY: headache with hx of brain bleedheadache with hx of brain bleed; COMPARISON: Numerous priors TECHNIQUE: Multiple axial images of the head were obtained from the skull base to the vertex without administration of IV contrast. Sagittal and coronal reformatted images were performed. Automated exposure control (AEC) was utilized to adjust the MA and/or kV. FINDINGS: CT findings of an acute on chronic [place] hemispheric right frontotemporal extra- axial subdural hemorrhage which measures 10 mm in greatest diameter with slight [id number] midline shift of roughly 6 mm without evidence for hailey herniation syndrome yet seen. Close interval head CT follow-up in 1 hour is rec ommended to exclude interval enlargement. Neurosurgical consultation will also be required. There is no evidence for acute hydrocephalus yet seen, either. There is no secondary evidence for cerebral edema to suggest impending cerebral ischemia on this examination, either. Otherwise, there is moderate sulcal and cisternal prominence as well as atherosclerotic change in the proximal intracranial carotid and vertebral arteries, which is not out of proportion to the patient's stated age. There is diffuse CT density alteration seen in the periventricular white matter of the high and mid-convexity, which is likely in the setting of small vessel disease and not out of proportion to the patient's stated age. There is no pathologic ventricular dilatation or CT imaging evidence for hydrocephalus or herniation syndrome. No midline shift is evident. No other acute intraparenchymal hemorrhage or mass can be identified. If there remains a strong concern for any intra-cranial neoplasm, then follow-up with CT or MR imaging of the brain would be more sensitive to exclude any intra-cranial mass lesion. No extra-axial fluid collections are seen. No alteration in the attenuation of the brain pare nchyma can be identified to suggest acute or subacute ischemic change. Also, if clinical symptoms are concerning for an acute CVA, then follow-up MRI with DWI sequencing is recommended. The extracranial structures are unremarkable. The paranasal sinuses and mastoid air cells are relatively clear. IMPRESSION: CT findings of an acute on chronic [place] hemispheric right-sided frontotemporal, extra-axial and subdural, hemorrhage which measures 10 mm in greatest diameter with slight [id number] midline shift of roughly 6 mm without evidence for hailey transtentorial herniation syndrome yet seen. No uncal herniation is yet observed, either. Close interval head CT follow-up in 1 hour is recommended to exclude interval enlargement. Neurosurgical consultation will also be required. There is no evidence for acute hydrocephalus yet seen, either. There is no secondary evidence for cerebral edema to suggest impending cerebral ischemia on this examination, either. No other acute intracranial process is identified on this noncontrast head CT examination.
[2024-05-17] MEDS: diphenhydrAMINE HCL 50 MG/ML VIAL INJ PRN (16:00)
[2024-05-18 08:17] VITALS: PULSE 70; RESP 19
[2024-05-18 12:11] VITALS: BP 134/62; TEMP 98.1
--- NOTE | 2024-05-18 12:40 | Discharge Summary ---
DS: Providers Provider Date of admission: 05/16/24 19:43 Primary care physician: Fadi Alvarez MD Admitting clinician: Hilario Crockett Attending physician on admission: Mabel Cleaning Attending physician on discharge: Mabel Cleaning Discharging clinician: Mabel Cleaning Anticipated date of discharge: 05/18/24 DS: Diagnosis Discharge Diagnosis (1) Intracranial hemorrhage: (2) Non-STEMI (non-ST elevated myocardial infarction): (3) Pancreatitis: Qualifiers: Chronicity: acute Pancreatitis type: unspecified pancreatitis type Acute pancreatitis complication: unspecified Qualified Code(s): K85.90 - Acute pancreatitis without necrosis or infection, unspecified (4) Cholelithiases: Qualifiers: Cholelithiasis location: bile duct Cholecystitis presence: without cholecystitis Biliary obstruction: without biliary obstruction Qualified Code(s): K80.50 - Calculus of bile duct without cholangitis or cholecystitis without obstruction (5) Biliary colic: (6) Type 2 diabetes mellitus with hyperglycemia: Qualifiers: Diabetes mellitus bunghole borer insulin use: without bunghole borer use Qualified Code(s): E11.65 - Type 2 diabetes mellitus with hyperglycemia (7) Essential (primary) hypertension: (8) Bilateral hearing loss: Qualifiers: Hearing loss type: sensorineural Qualified Code(s): H90.3 - Sensorineural hearing loss, bilateral (9) GERD (gastroesophageal reflux disease): Qualifiers: Esophagitis presence: without esophagitis Qualified Code(s): K21.9 - Gastro-esophageal reflux disease without esophagitis (10) ETOH abuse: (11) History of TIAs: (12) Admission for end of life care: (13) Need for comfort care: DS: Summary Hospital Course Hospital Course: 63-year-old male who presented to ER with complaint of chest pain x 1 day with mild nausea and reported headache has been evaluated by physical exam, CBC, CMP, urinalysis, EKG, troponin, plain film chest x-ray, CT of the brain, repeat troponin with results as noted in charting. Patient has been found to have a acute on chronic brain bleed with mild midline shift, patient's initial troponin was within normal range but was noted to be mildly elevated and was repeated at the 4-hour jone with a noted substantial gain to 21,000+. Discussed patient's condition with family and a DNR was signed at that time after patient's son gave verbal medical power of selling specialist to his cousin that is a nurse practitioner Parrish Gutierrez. DNR was signed by Parrish Gutierrez as witnessed by nurse practitioner Bon. Patient will be admitted to the [facility] floor for care and comfort measures with disposition to hospice tomorrow as a tentative plan. Patient had been released to [facility] following a brain bleed according to family approximately 1 week ago. Patient remained with Headache improved with medications but not resolved patient verbal but confused and sleeping alot from weakness and medications and No ETOH in over 1 month per his sisters. no solid food per speech only thick liquids and soft or purreed foods Time spent discussing smoking cessation with patient: more than 10 minutes (with family) Status at Discharge Functional status at discharge: bed bound Overall status at discharge: patient is not back to baseline Time Spent with Patient Time attestation: Total time spent providing and/or coordinating discharge services: Time spent: greater than 30 minutes Exam Exam: Patient was in low trevino's position resting upon entering room for exam. Patient is receiving end of life care and comfort measures. Constitutional: abnormal general appearance (disheveled), (chronically ill) and (frail appearing), distress noted (moderate), average body habitus, limitations noted (patient has limited communication post recent brain bleed) (physical limitations) and alert Vital Signs - 24 hr 05/17/24 16:00 05/17/24 20:00 05/17/24 23:53 Temperature 98.3 F 98.3 F 98.7 F Pulse Rate [Bilate ral] 82 84 76 Respiratory Rate 18 19 21 Blood Pressure [Le ft Arm] 112/65 98/58 111/70 Pulse Oximetry 96 98 98 Oxygen Delivery Me thod Room Air Room Air Room Air 05/18/24 04:00 05/18/24 08:00 05/18/24 12:00 Temperature 98.1 F 97.4 F L 98.1 F Pulse Rate [Bilate ral] 78 70 70 Respiratory Rate 23 19 19 Blood Pressure [Le ft Arm] 124/65 80/47 134/62 Pulse Oximetry 98 97 95 Oxygen Delivery Me thod Room Air Room Air Room Air HENMT: normocephalic, head/scalp atraumatic, hearing grossly abnormal (hard of hearing), external ears normal, EACs normal, TMs normal bilaterally, nasal mucous membranes normal, external nose normal, oral mucous membranes normal, or opharynx normal and dentition abnormal Eyes: PERRL, EOMs intact bilaterally, conjunctivae normal, no scleral icterus, no papilledema, normal visual bryant by confrontation, alignment normal, periorbital findings normal and no nystagmus Neck/C-Spine: visual inspection normal, trachea midline, cervical spine nontender, cervical full ROM noted, supple, no meningeal signs and thyroid normal Lymph: no lymphadenopathy noted and no lymphedema noted Chest: inspection of chest normal and palpation of chest normal Respiratory: breath sounds equal bilaterally, normal respiratory effort, clear to auscultation bilaterally, no wheezes, no rales, no retractions and no use of accessory muscles Cardiovascular: normal heart rate noted, regular rhythm noted, no gallop, no rub, no murmur, no JVD, no clicks, peripheral pulses 2+ throughout, no bruits noted and no additional abnormal heart sounds Gastrointestinal: abdomen normal to inspection, abdomen soft to palpation, nontender to palpation, nontender to percussion, nondistended, normoactive bowel sounds, hepatosplenomegaly noted, no masses, no pulsatile mass and ascites noted Genitourinary: no CVA tenderness, bladder normal to palpation and external appearance normal Back/Pelvis: spine normal to inspection, no thoracic spine tenderness, no lumbar spine tenderness, thoracic spine ROM normal, lumbar spine ROM normal and no paraspinal muscle tenderness noted Extremities: normal to inspection, normal to palpation, no tenderness, full ROM, no joint enlargement and no deformity Neurology: sap developer II-XII intact, no movement abnormality noted, no focal motor deficit noted, sensory deficit noted, deep tendon reflexes as noted:, gait abnormality noted, speech abnormality noted, coordination abnormality noted, no pronator drift noted, no fasciculations noted and GCS normal Patient cannot verbally communicate but has to think about what he wants to say, patient reports headache, patient has no other neurological deficits noted other than generalized weakness. Psychiatry: Mental Status Exam documented within this Exam's Psych section mental status abnormal (somnolent), orientation abnormal (Patient is oriented to his normal state post brain bleed), thought process abnormality noted, cooperative, affect abnormality noted and psychomotor abnormality noted Feel stressed/tense/nervous/anxious/difficulty sleeping: decline to answer Skin: skin color abnormal, no rash, no lesions, ecchymosis noted, no wounds, no lacerations, skin turgor abnormal, no jaundice, petechiae noted, no mottling, nails abnormality noted and no alopecia Discharge Plan Discharge Disposition: Hospice Care Condition: Other Discharge Medications: Continued levetiracetam 500 mg tablet 500 mg PO Q12H Patient Comments: TAKE 1 TABLET (500 MG TOTAL) BY MOUTH IN THE MORNING AND BEFORE BEDTIME nifedipine 60 mg tablet extended release 24hr 60 mg PO DAILY Patient Comments: TAKE 1 TABLET BY MOUTH EVERY DAY hydralazine 50 mg tablet 50 mg PO BEDTIME Patient Comments: TAKE 1 TABLET BY MOUTH EVERYDAY AT BEDTIME lisinopril 40 mg tablet 40 mg PO DAILY Patient Comments: TAKE 1 TABLET BY MOUTH EVERY DAY hydrocodone-acetaminophen 7.5-325 mg tablet 1 tab PO Q6H PRN (Reason: pain) Patient Comments: TAKE 1 TABLET BY MOUTH EVERY 6 HOURS NEEDED FOR PAIN FOR UP TO 7 DAYS. Activity: as per physical therapy Diet: other Interventions: MED/SURG & ICU Observation Charge Sheet Last Done: 05/18/24 06:25 Print Language: Maltese Activity Restrictions/Additional Instructions: EMS [place] hear to transport [place] to [place] further orders and care plan per [facility] . Forms: Portal/Health Info Access Inst Follow-Ups: Fadi Alvarez MD [Primary Care Provider] -
== END 2024-05-18 13:00 | disposition hospice, home (50) ==
LOC: MS 11:34 → ED 11:34 → MS 21:06
PROVIDERS: ADMIT Nurse Practitioner Family; ATTEND Family Medicine